=== PATIENT | male | born 2000 | race Caucasian/White ===

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

== ENCOUNTER 2021-04-14 09:38 | Emergency (ER) | payer OTHER ==
[~2021-04-14] VITALS: Ht 190.5 cm; Wt 104.3 kg
[~2021-04-14 09:38] MED LIST changes: +HYDROCODON-ACE1 EAC7 PO
[2021-04-14 10:03] VITALS: BP 129/82
== END 2021-04-14 10:03 | disposition home or self-care (01) ==
LOC: M.ERS 09:38
DX: M25.531 Pain in right wrist (principal)